=== PATIENT | female | born 1990 | race Caucasian/White ===

== ENCOUNTER → 2021-03-29 | Emergency (ER) | payer OTHER ==
[~2021-03-29] VITALS: Ht 157.5 cm; Wt 64.0 kg
[~2021-03-29] MED LIST: HYDROCODONE/ACETAMINOPHEN 10/325MG TABLET PO ONE; IBUP-2030 MT; IBUPROFEN 600MG TABLET PO ONE; SILV20CR13 TP; SILVER SULFADIAZINE 1% CREAM 25GM TOP ONE
[2021-03-29 23:03] VITALS: BP 168/86
== END ==
LOC: ER 20:17
DX: R68.89 Other general symptoms and signs (principal); I10 Essential (primary) hypertension
CPT/HCPCS: 93005; 99284